=== PATIENT | male | born 1945 | race Caucasian/White ===

== ENCOUNTER 2018-10-22 11:05 | Outpatient (CLI) | payer MEDICARE ==
[2018-10-22 12:16] LABS: BASOPHILS # (AUTO) 0.06 x10^3/uL (0-0.1); BASOPHILS % (AUTO) 1 % (0-1); EOSINOPHILS # (AUTO) 0.36 x10^3/uL (0-0.4); EOSINOPHILS % (AUTO) 4 % (1-7); LYMPHOCYTES # (AUTO) 2.85 x10^3/uL (1-3.4); LYMPHOCYTES % (AUTO) 32 % (22-44); MD NO; MEAN CORPUSCULAR HEMOGLOBIN 31.2 pg (27.5-34.5); MEAN CORPUSCULAR HGB CONC 32.8 g/dL (33.2-36.2); MEAN CORPUSCULAR VOLUME 95.1 fL (81-97); MEAN PLATELET VOLUME 8.7 fL (7.4-10.4); MONOCYTES # (AUTO) 1.01 x10^3/uL (0.2-0.8); MONOCYTES % (AUTO) 12 % (2-9); NEUTROPHILS % (AUTO) 51 % (42-75); PLATELET COUNT 215 x10^3/uL (130-400); RED BLOOD COUNT 4.97 x10^6/uL (4.38-5.82); RED CELL DISTRIBUTION WIDTH 14.6 % (9.4-14.8)
[2018-10-22 12:26] LABS: INTERNATIONAL NORMALIZED RATIO 0.95 (0.93-1.1)
[2018-10-22 12:37] LABS: MICROSCOPIC NOT IND
[2018-10-22 12:38] LABS: ALBUMIN 3.8 g/dL (3.4-5.0); ANION GAP 11 mmol/L (5-15); CALCIUM 10.1 mg/dL (8.5-10.1); CHLORIDE 106 mmol/L (98-107); CREATININE 1.03 mg/dL (0.7-1.3)
[2018-10-22 12:41] LABS: ALANINE AMINOTRANSFERASE 34 U/L (12-78); ALKALINE PHOSPHATASE 56 U/L (45-117); BILIRUBIN,TOTAL 0.4 mg/dL (0.2-1.0); TOTAL PROTEIN 7.6 g/dL (6.4-8.2)
[2018-10-22 12:44] LABS: CULTURE INDICATED? NO
[2018-10-22] MEDS ORDERED: NEBI5TAB3 PO (15:42)
[2018-10-22] MEDS ORDERED: METF500T27 PO (15:42)
[2018-10-22] MEDS ORDERED: MOME13HF INH (15:42)
[2018-10-22] MEDS ORDERED: LOSA1TAB22 PO (15:42)
[2018-10-22] MEDS ORDERED: ROSU10TA2 PO (15:42)
[2018-10-22] MEDS ORDERED: IBUP-1623 PO (15:42)
== END 2018-10-22 23:59 | disposition home or self-care (01) ==
LOC: STAR 11:05
PROVIDERS: ATTEND Neurological Surgery
DX: Z01.818 Encounter for other preprocedural examination (principal); M43.18 Spondylolisthesis, sacral and sacrococcygeal region
CPT/HCPCS: 36415; 80053; 81003; 85025; 85610; 85730; 93005

== ENCOUNTER 2018-11-05 07:33 | Inpatient (IN) | payer MEDICARE ==
[~2018-11-05] VITALS: Ht 175.3 cm; Wt 91.0 kg
[~2018-11-05 07:33] MED LIST: IBUP-1623 PO; LOSA1TAB22 PO; METF500T27 PO; MOME13HF INH; NEBI5TAB3 PO; ROSU10TA2 PO
[2018-11-05] MEDS ORDERED: LACTATED RINGERS 1,000 ML IV SCH (08:21)
[2018-11-05] MEDS ORDERED: ACETAMINOPHEN 500 MG TABLET PO STA (08:29)
[2018-11-05] MEDS ORDERED: SCOPOLAMINE PATCH, 1.5MG PATCH.TD72 TD STA (08:29)
[2018-11-05] MEDS ORDERED: PROPOFOL 50 ML ONE ×6 (09:05→15:24)
[2018-11-05] MEDS ORDERED: FENTANYL PF 250 MCG/5ML ONE (09:06)
[2018-11-05] MEDS ORDERED: MIDAZOLAM 1 MG/ML, 2ML ONE ×2 (09:06→10:57)
[2018-11-05] MEDS ORDERED: LIDOCAINE-MPF 2% ,5ML ONE (09:08)
[2018-11-05] MEDS ORDERED: CEFAZOLIN 1,000 MG ONE ×2 (09:08)
[2018-11-05] MEDS ORDERED: ROCURONIUM 10MG/ML,5ML ONE (09:08)
[2018-11-05] MEDS ORDERED: PROPOFOL 10 MG/ML, 20ML ONE (09:09)
[2018-11-05] MEDS ORDERED: BUPIVACAINE/PF 0.25% ONE (10:35)
[2018-11-05] MEDS ORDERED: VANCOMYCIN 1,000 MG ONE (10:35)
[2018-11-05] MEDS ORDERED: BACITRACIN 50,000 UNIT ONE (10:35)
[2018-11-05] MEDS ORDERED: THROMBIN 5,000 UNIT VIAL TP ONE ×2 (10:35→14:09)
[2018-11-05] MEDS ORDERED: EPINEPHRINE 1 MG/ML, 1ML ONE (10:36)
[2018-11-05] MEDS ORDERED: FENTANYL PF 100 MCG/2ML ONE ×4 (10:57→17:00)
[2018-11-05] MEDS ORDERED: KETAMINE 10 MG/ML, 20ML ONE (10:57)
[2018-11-05] MEDS ORDERED: ONDANSETRON 2MG/ML, 2ML ONE (10:57)
[2018-11-05] MEDS ORDERED: ONDANSETRON 2MG/ML, 2ML IV PRN ×2 (12:00→19:00)
[2018-11-05] MEDS ORDERED: HEPARIN 1,000 UNITS/ML, 30ML IVPB ONE ×2 (12:00→15:01)
[2018-11-05] MEDS ORDERED: ALBUTEROL SULFATE 2.5 MG/3 ML NPPB PRN (12:00)
[2018-11-05] MEDS ORDERED: METOCLOPRAMIDE 5 MG/ML, 2ML IV PRN (12:00)
[2018-11-05] MEDS ORDERED: hydrALAzine 20 MG/ML, 1ML IV PRN (12:00)
[2018-11-05] MEDS ORDERED: MEPERIDINE/PF 25MG/0.5ML IVPush PRN (12:00)
[2018-11-05] MEDS ORDERED: LORazepam 2 MG/ML, 1ML IVPush PRN (12:00)
[2018-11-05] MEDS ORDERED: OXYcodone 5 MG/5 ML ORAL.SOL UDC PO PRN (12:00)
[2018-11-05] MEDS ORDERED: BUPIVACAINE/PF 0.25% INFIL ONE ×3 (12:04→12:05)
[2018-11-05] MEDS ORDERED: OXYcodone 5 MG/5 ML ORAL.SOL UDC ONE (16:19)
[2018-11-05] MEDS ORDERED: HYDROmorphone 2 MG/ML, 1ML ONE (16:19)
[2018-11-05] MEDS: FENTANYL PF 100 MCG/2ML IV PRN ×3 (16:23→17:03)
[2018-11-05] MEDS: HYDROmorphone 2 MG/ML, 1ML IVPush PRN ×2 (16:25→16:41)
[2018-11-05] MEDS ORDERED: HYDROmorphone PCA 30 MG/30 ML IV PRN (16:30)
[2018-11-05] MEDS ORDERED: BISACODYL 10 MG SUPP PR PRN (19:00)
[2018-11-05] MEDS: NS + 20MEQ KCL 1,000 ML IV SCH (19:00)
[2018-11-05] MEDS ORDERED: PROMETHAZINE 25 MG/ML, 1ML IM PRN (19:00)
[2018-11-05] MEDS ORDERED: MAGNESIUM HYDROXIDE 8%, 30ML UDC PO PRN (19:00)
[2018-11-05] MEDS ORDERED: DIPHENHYDRAMINE 50 MG/ML, 1ML IVPush PRN (19:00)
[2018-11-05] MEDS ORDERED: OXYcodone/APAP 10/325MG TABLET PO PRN (19:00)
[2018-11-05 20:38] VITALS: BP 108/63
[2018-11-05] MEDS: CEFAZOLIN PMX 1GM/50ML 50 ML IVPB SCH (20:51)
[2018-11-05] MEDS: ATORVASTATIN 40 MG TABLET PO SCH (21:00)
[2018-11-05] MEDS: SODIUM CHLORIDE 0.9% 1,000 ML IV SCH (22:30)
[2018-11-05] MEDS ORDERED: SODIUM CHLORIDE 0.9%, 500ML IVBOLUS ONE (22:30)
[2018-11-05 22:49] LABS: BASOPHILS # (AUTO) 0.02 x10^3/uL (0-0.1); BASOPHILS % (AUTO) 0 % (0-1); EOSINOPHILS % (AUTO) 0 % (1-7); LYMPHOCYTES % (AUTO) 7 % (22-44); MD NO; MEAN CORPUSCULAR HEMOGLOBIN 32.3 pg (27.5-34.5); MEAN CORPUSCULAR HGB CONC 33.2 g/dL (33.2-36.2); MEAN CORPUSCULAR VOLUME 97.2 fL (81-97); MEAN PLATELET VOLUME 8.7 fL (7.4-10.4); MONOCYTES # (AUTO) 0.97 x10^3/uL (0.2-0.8); MONOCYTES % (AUTO) 7 % (2-9); NEUTROPHILS # (AUTO) 11.33 x10^3/uL (1.8-6.8); NEUTROPHILS % (AUTO) 86 % (42-75); PLATELET COUNT 163 x10^3/uL (130-400); RED BLOOD COUNT 3.77 x10^6/uL (4.38-5.82); RED CELL DISTRIBUTION WIDTH 14.5 % (9.4-14.8)
[2018-11-05 23:01] LABS: ANION GAP 6 mmol/L (5-15); CALCIUM 8.3 mg/dL (8.5-10.1); CHLORIDE 107 mmol/L (98-107); CREATININE 1.09 mg/dL (0.7-1.3)
[2018-11-06 03:43] VITALS: BP_SYST 106; BP_SYST 125; BP_DIAS 69; BP_DIAS 74
[2018-11-06] MEDS: NS + 20MEQ KCL 1,000 ML IV SCH ×2 (05:00→14:47)
[2018-11-06 05:32] LABS: ANION GAP 3 mmol/L (5-15); CHLORIDE 110 mmol/L (98-107)
[2018-11-06] MEDS: CEFAZOLIN PMX 1GM/50ML 50 ML IVPB SCH (05:32)
[2018-11-06 05:33] LABS: CREATININE 1.09 mg/dL (0.7-1.3)
[2018-11-06 05:46] LABS: BASOPHILS # (AUTO) 0.03 x10^3/uL (0-0.1); BASOPHILS % (AUTO) 0 % (0-1); EOSINOPHILS # (AUTO) 0.02 x10^3/uL (0-0.4); EOSINOPHILS % (AUTO) 0 % (1-7); LYMPHOCYTES % (AUTO) 10 % (22-44); MD NO; MEAN CORPUSCULAR HEMOGLOBIN 30.8 pg (27.5-34.5); MEAN CORPUSCULAR HGB CONC 32.1 g/dL (33.2-36.2); MEAN CORPUSCULAR VOLUME 96.1 fL (81-97); MEAN PLATELET VOLUME 9.1 fL (7.4-10.4); MONOCYTES # (AUTO) 0.94 x10^3/uL (0.2-0.8); MONOCYTES % (AUTO) 10 % (2-9); NEUTROPHILS # (AUTO) 7.77 x10^3/uL (1.8-6.8); NEUTROPHILS % (AUTO) 80 % (42-75); PLATELET COUNT 153 x10^3/uL (130-400); RED BLOOD COUNT 3.58 x10^6/uL (4.38-5.82); RED CELL DISTRIBUTION WIDTH 14.5 % (9.4-14.8)
[2018-11-06] MEDS ORDERED: FUROSEMIDE 20 MG/2 ML IV ONE (06:00)
[2018-11-06 06:27] VITALS: BP 114/66
[2018-11-06] MEDS: NEBIVOLOL HCL 5 MG TABLET PO SCH (06:47)
[2018-11-06] MEDS: HYDROCHLOROTHIAZIDE 25 MG TABLET PO SCH (08:22)
[2018-11-06] MEDS: metFORMIN XR 500 MG TAB.ER.24H PO SCH (08:22)
[2018-11-06] MEDS: SENNA/DOCUSATE TABLET PO SCH (08:22)
[2018-11-06] MEDS: LOSARTAN 50MG TABLET PO SCH (08:22)
[2018-11-06] MEDS ORDERED: DULERA PO SCH (09:00)
[2018-11-06] MEDS: SODIUM CHLORIDE 0.9% 1,000 ML IV SCH ×2 (10:16→19:30)
[2018-11-06] MEDS ORDERED: ROCURONIUM 10 MG/ML,10ML ONE (10:57)
[2018-11-06] MEDS ORDERED: DEXAMETHASONE 4 MG/ML, 1ML ONE (10:57)
[2018-11-06] MEDS ORDERED: SUCCINYLCHOLINE 20 MG/ML, 10ML ONE (10:57)
[2018-11-06] MEDS ORDERED: CEFAZOLIN 1,000 MG ONE (10:57)
[2018-11-06] MEDS ORDERED: PHENYLEPHRINE 10 MG/ML ONE (10:57)
[2018-11-06] MEDS ORDERED: EPHEDRINE 50 MG/ML, 1ML ONE (10:57)
[2018-11-06] MEDS ORDERED: PROPOFOL 10 MG/ML, 20ML ONE (10:57)
[2018-11-06 12:41] VITALS: BP 123/69
[2018-11-06] MEDS: HYDROcodone/APAP 10/325 MG TABLET PO PRN ×2 (16:13→16:40)
[2018-11-06 19:09] VITALS: BP 114/67
[2018-11-06] MEDS: DIPHENHYDRAMINE 25 MG CAPSULE PO PRN (20:25)
[2018-11-06] MEDS: ATORVASTATIN 40 MG TABLET PO SCH (20:25)
[2018-11-06] MEDS: TIZANIDINE 4MG TABLET PO PRN (20:25)
[2018-11-07] MEDS: NS + 20MEQ KCL 1,000 ML IV SCH ×3 (01:00→21:00)
[2018-11-07] MEDS: SODIUM CHLORIDE 0.9% 1,000 ML IV SCH ×3 (02:10→14:51)
[2018-11-07] MEDS: TIZANIDINE 4MG TABLET PO PRN ×2 (05:45→14:47)
[2018-11-07] MEDS: DIPHENHYDRAMINE 25 MG CAPSULE PO PRN (05:45)
[2018-11-07] MEDS: NEBIVOLOL HCL 5 MG TABLET PO SCH (05:45)
[2018-11-07 05:46] LABS: ANION GAP 5 mmol/L (5-15); CALCIUM 7.8 mg/dL (8.5-10.1); CHLORIDE 113 mmol/L (98-107); CREATININE 0.92 mg/dL (0.7-1.3)
[2018-11-07 05:47] LABS: BASOPHILS # (AUTO) 0.03 x10^3/uL (0-0.1); BASOPHILS % (AUTO) 0 % (0-1); EOSINOPHILS # (AUTO) 0.01 x10^3/uL (0-0.4); EOSINOPHILS % (AUTO) 0 % (1-7); LYMPHOCYTES # (AUTO) 0.93 x10^3/uL (1-3.4); LYMPHOCYTES % (AUTO) 9 % (22-44); MD NO; MEAN CORPUSCULAR HEMOGLOBIN 32.2 pg (27.5-34.5); MEAN CORPUSCULAR HGB CONC 33.2 g/dL (33.2-36.2); MEAN CORPUSCULAR VOLUME 97.1 fL (81-97); MONOCYTES # (AUTO) 1.12 x10^3/uL (0.2-0.8); MONOCYTES % (AUTO) 10 % (2-9); NEUTROPHILS # (AUTO) 8.74 x10^3/uL (1.8-6.8); NEUTROPHILS % (AUTO) 81 % (42-75); PLATELET COUNT 135 x10^3/uL (130-400); RED BLOOD COUNT 3.03 x10^6/uL (4.38-5.82)
[2018-11-07 06:50] VITALS: BP 98/52
[2018-11-07] MEDS: LOSARTAN 50MG TABLET PO SCH (07:32)
[2018-11-07] MEDS: HYDROCHLOROTHIAZIDE 25 MG TABLET PO SCH (07:32)
[2018-11-07] MEDS: SENNA/DOCUSATE TABLET PO SCH (08:50)
[2018-11-07] MEDS: metFORMIN XR 500 MG TAB.ER.24H PO SCH (08:50)
[2018-11-07] MEDS: HYDROcodone/APAP 10/325 MG TABLET PO PRN ×3 (10:43→16:50)
[2018-11-07 13:45] VITALS: BP 104/57
[2018-11-07] MEDS: morphine SULFATE 10 MG/ML, 1ML IV PRN ×2 (15:24→15:54)
[2018-11-07 18:59] VITALS: BP 99/56
[2018-11-08] MEDS: HYDROcodone/APAP 10/325 MG TABLET PO PRN ×4 (00:13→15:32)
[2018-11-08] MEDS: TIZANIDINE 4MG TABLET PO PRN ×3 (00:13→20:02)
[2018-11-08] MEDS: ATORVASTATIN 40 MG TABLET PO SCH ×2 (00:13→20:02)
[2018-11-08] MEDS: DIPHENHYDRAMINE 25 MG CAPSULE PO PRN ×2 (00:13→20:02)
[2018-11-08 01:04] VITALS: BP 110/66
[2018-11-08 05:27] LABS: BASOPHILS # (AUTO) 0.03 x10^3/uL (0-0.1); BASOPHILS % (AUTO) 0 % (0-1); EOSINOPHILS # (AUTO) 0.02 x10^3/uL (0-0.4); EOSINOPHILS % (AUTO) 0 % (1-7); LYMPHOCYTES # (AUTO) 1.29 x10^3/uL (1-3.4); LYMPHOCYTES % (AUTO) 13 % (22-44); MD NO; MEAN CORPUSCULAR HEMOGLOBIN 31.1 pg (27.5-34.5); MEAN CORPUSCULAR HGB CONC 32.5 g/dL (33.2-36.2); MEAN CORPUSCULAR VOLUME 95.8 fL (81-97); MEAN PLATELET VOLUME 8.8 fL (7.4-10.4); MONOCYTES # (AUTO) 1.18 x10^3/uL (0.2-0.8); MONOCYTES % (AUTO) 12 % (2-9); NEUTROPHILS # (AUTO) 7.12 x10^3/uL (1.8-6.8); NEUTROPHILS % (AUTO) 74 % (42-75); PLATELET COUNT 139 x10^3/uL (130-400); RED BLOOD COUNT 2.61 x10^6/uL (4.38-5.82); RED CELL DISTRIBUTION WIDTH 14.3 % (9.4-14.8)
[2018-11-08 05:40] LABS: ANION GAP 5 mmol/L (5-15); CALCIUM 7.7 mg/dL (8.5-10.1); CHLORIDE 110 mmol/L (98-107); CREATININE 0.79 mg/dL (0.7-1.3)
[2018-11-08] MEDS: NEBIVOLOL HCL 5 MG TABLET PO SCH (05:40)
[2018-11-08] MEDS: SODIUM CHLORIDE 0.9% 1,000 ML IV SCH ×4 (05:40→23:07)
[2018-11-08] MEDS: NS + 20MEQ KCL 1,000 ML IV SCH ×2 (07:00→17:00)
[2018-11-08] MEDS: metFORMIN XR 500 MG TAB.ER.24H PO SCH (08:28)
[2018-11-08] MEDS: SENNA/DOCUSATE TABLET PO SCH (08:29)
[2018-11-08] MEDS: LOSARTAN 50MG TABLET PO SCH (08:31)
[2018-11-08] MEDS: HYDROCHLOROTHIAZIDE 25 MG TABLET PO SCH (08:32)
[2018-11-08] MEDS: MAGNESIUM HYDROXIDE 8%, 30ML UDC PO SCH (09:00)
[2018-11-08 09:57] VITALS: BP 106/60
[2018-11-08 13:17] VITALS: BP 95/44
[2018-11-08] MEDS: OXYcodone/APAP 10/325MG TABLET PO PRN ×2 (17:53→22:19)
[2018-11-08 20:01] VITALS: BP 116/68
[2018-11-09 00:05] VITALS: BP 112/60
[2018-11-09] MEDS: NS + 20MEQ KCL 1,000 ML IV SCH ×2 (03:00→13:00)
[2018-11-09 05:08] LABS: BASOPHILS # (AUTO) 0.03 x10^3/uL (0-0.1); BASOPHILS % (AUTO) 0 % (0-1); EOSINOPHILS # (AUTO) 0.09 x10^3/uL (0-0.4); EOSINOPHILS % (AUTO) 1 % (1-7); LYMPHOCYTES # (AUTO) 0.92 x10^3/uL (1-3.4); LYMPHOCYTES % (AUTO) 11 % (22-44); MD NO; MEAN CORPUSCULAR HEMOGLOBIN 31.6 pg (27.5-34.5); MEAN CORPUSCULAR VOLUME 95.7 fL (81-97); MEAN PLATELET VOLUME 7.6 fL (7.4-10.4); MONOCYTES # (AUTO) 1.01 x10^3/uL (0.2-0.8); MONOCYTES % (AUTO) 12 % (2-9); NEUTROPHILS # (AUTO) 6.22 x10^3/uL (1.8-6.8); NEUTROPHILS % (AUTO) 75 % (42-75); PLATELET COUNT 179 x10^3/uL (130-400); RED BLOOD COUNT 2.67 x10^6/uL (4.38-5.82)
[2018-11-09] MEDS: TIZANIDINE 4MG TABLET PO PRN (05:15)
[2018-11-09] MEDS: OXYcodone/APAP 10/325MG TABLET PO PRN (05:15)
[2018-11-09] MEDS: SODIUM CHLORIDE 0.9% 1,000 ML IV SCH ×2 (05:15→12:10)
[2018-11-09] MEDS: DIPHENHYDRAMINE 25 MG CAPSULE PO PRN (05:15)
[2018-11-09] MEDS: NEBIVOLOL HCL 5 MG TABLET PO SCH (05:15)
[2018-11-09 06:48] VITALS: BP 108/43
[2018-11-09] MEDS ORDERED: HYDR-3307 PO (08:59)
[2018-11-09] MEDS ORDERED: TIZA2TAB PO (08:59)
[2018-11-09] MEDS: LOSARTAN 50MG TABLET PO SCH (09:00)
[2018-11-09] MEDS: metFORMIN XR 500 MG TAB.ER.24H PO SCH (09:29)
[2018-11-09] MEDS: HYDROCHLOROTHIAZIDE 25 MG TABLET PO SCH (09:29)
[2018-11-09] MEDS: MAGNESIUM HYDROXIDE 8%, 30ML UDC PO SCH (09:29)
[2018-11-09] MEDS: SENNA/DOCUSATE TABLET PO SCH (09:30)
[2018-11-09] MEDS ORDERED: TIZANIDINE 2MG TABLET PO PRN (11:00)
[2018-11-09 12:26] VITALS: BP 138/61
[2018-11-09] MEDS: HYDROcodone/APAP 10/325 MG TABLET PO PRN (13:33)
== END 2018-11-09 15:17 | DRG 455 ==
LOC: ORIP 07:33 → 4NOR 18:21
PROVIDERS: ADMIT Neurological Surgery; ATTEND Neurological Surgery
PROC: 0SG10AJ Fusion of 2 or more Lumbar Vertebral Joints with Interbody Fusion Device, Posterior Approach, Anterior Column, Open Approach (ICD-10-PCS; 2018-11-05)
PROC: 0SG1071 Fusion of 2 or more Lumbar Vertebral Joints with Autologous Tissue Substitute, Posterior Approach, Posterior Column, Open Approach (ICD-10-PCS; 2018-11-05)
PROC: 0SG30AJ Fusion of Lumbosacral Joint with Interbody Fusion Device, Posterior Approach, Anterior Column, Open Approach (ICD-10-PCS; 2018-11-05)
PROC: 00NY0ZZ Release Lumbar Spinal Cord, Open Approach (ICD-10-PCS; 2018-11-05)
PROC: 01NR0ZZ Release Sacral Nerve, Open Approach (ICD-10-PCS; 2018-11-05)
PROC: 0SG3071 Fusion of Lumbosacral Joint with Autologous Tissue Substitute, Posterior Approach, Posterior Column, Open Approach (ICD-10-PCS; 2018-11-05)
PROC: 0SP004Z Removal of Internal Fixation Device from Lumbar Vertebral Joint, Open Approach (ICD-10-PCS; 2018-11-05)
PROC: 01NB0ZZ Release Lumbar Nerve, Open Approach (ICD-10-PCS; principal; 2018-11-05 10:30)
DX: M48.062 Spinal stenosis, lumbar region with neurogenic claudication (principal); M47.26 Other spondylosis with radiculopathy, lumbar region; M51.17 Intervertebral disc disorders with radiculopathy, lumbosacral region; I10 Essential (primary) hypertension; M48.07 Spinal stenosis, lumbosacral region; E11.9 Type 2 diabetes mellitus without complications; F17.210 Nicotine dependence, cigarettes, uncomplicated; G89.29 Other chronic pain; M43.16 Spondylolisthesis, lumbar region; Z98.1 Arthrodesis status; Z82.49 Family history of ischemic heart disease and other diseases of the circulatory system; Z82.61 Family history of arthritis
CPT/HCPCS: 36415; 72100; 80048; 82962; 85025; 86850; 86900; 95938; 95941; C1713; C1776; G0378; J0171; J0690; J1100; J1170; J1644; J2250; J2405; J2704; J3010; J3370; J3480; J3490; C1762; C1781; J0330; J1200; J1940; J2270; J2370; J7030; J7040; J7120; Q0163